=== PATIENT | female | born 1985 | race Caucasian/White ===

== ENCOUNTER 2016-04-16 07:09 | Inpatient (IN) | payer OTHER ==
[2016-04-16] VITALS (22 sets, daily range): BP systolic 109–134; BP diastolic 59–77
[~2016-04-16] VITALS: Ht 162.6 cm; Wt 85.7 kg
[~2016-04-16 07:09] MED LIST: FLEXERIL10 MG PO; MOTRIN600 MG PO
[2016-04-16] MEDS ORDERED: ZOLOFT50 MG PO (07:38)
[2016-04-16] MEDS ORDERED: PRENATAL TABLE1 EAC3 PO (07:39)
[2016-04-16 09:45] LABS: HEMATOCRIT 36.8 % (36.0-46.0); MCH 31.6 PG (29.0-34.0); MCHC 33.7 G/DL (30.0-36.0); MCV 93.6 FL (83-99); MEAN PLAT.VOLUME 9.8 uM^3 (9.5-12.4); PLATELET COUNT 437 K/uL (156-360); RBC DIS.WIDTH-CV 14.2 % (11.8-14.6); RBC DIS.WIDTH-SD 48.8 % (39-53); RED BLOOD COUNT 3.93 M/uL (3.80-5.20); WHITE BLOOD COUNT 13.7 K/uL (4.1-10.2)
[2016-04-16 09:50] LABS: EOSINOPHIL (%) 1.4 % (0-5); EOSINOPHIL COUNT 0.2 K/uL (0-0.3); IMMATURE GRANULOCYTE (%) 0.7 % (0.0-0.7); IMMATURE GRANULOCYTE COUNT 0.1 K/uL; MONOCYTE (%) 4.9 % (3-12); MONOCYTE COUNT 0.7 K/uL (0-0.8); NEUTROPHIL (%) 78.5 % (45-76); NEUTROPHIL COUNT 10.7 K/uL (1.8-6.4)
[2016-04-16 18:34] LABS: AMPHETAMINES QUANT VALUE 0 NG/ML; BARBITUATES QUANT VALUE 0 NG/ML; BENZODIAZEPINES QUANT VALUE 0 NG/ML; BENZODIAZEPINES, URINE SCREEN Negative (200 ng/mL); MARIJUANA QUANT VALUE 0 NG/ML; OPIATES QUANTITATIVE VALUE 0 NG/ML; PHENCYCLIDINE QUANT VALUE 0 NG/ML
[2016-04-17] VITALS (15 sets, daily range): BP systolic 95–142; BP diastolic 52–66
[2016-04-18 06:18] LABS: EOSINOPHIL (%) 2.6 % (0-5); EOSINOPHIL COUNT 0.5 K/uL (0-0.3); HEMATOCRIT 35.9 % (36.0-46.0); IMMATURE GRANULOCYTE (%) 0.4 % (0.0-0.7); IMMATURE GRANULOCYTE COUNT 0.1 K/uL; LYMPHOCYTE COUNT 2.4 K/uL (1.0-2.8); MCH 30.7 PG (29.0-34.0); MCHC 32.9 G/DL (30.0-36.0); MCV 93.5 FL (83-99); MEAN PLAT.VOLUME 9.5 uM^3 (9.5-12.4); MONOCYTE (%) 7.3 % (3-12); MONOCYTE COUNT 1.2 K/uL (0-0.8); NEUTROPHIL (%) 75.2 % (45-76); NEUTROPHIL COUNT 12.8 K/uL (1.8-6.4); PLATELET COUNT 381 K/uL (156-360); RBC DIS.WIDTH-CV 14.6 % (11.8-14.6); RBC DIS.WIDTH-SD 50.4 % (39-53); RED BLOOD COUNT 3.84 M/uL (3.80-5.20); WHITE BLOOD COUNT 17.1 K/uL (4.1-10.2)
[2016-04-18 07:39] VITALS: BP 115/71
[2016-04-18 14:49] VITALS: BP 126/67
[2016-04-18 23:45] VITALS: BP 122/75
[2016-04-19 07:53] VITALS: BP 117/65
== END 2016-04-19 12:22 | disposition home or self-care (01) | DRG 775 ==
LOC: LDRP-OP 07:09 → 2WEST 07:10 → LDRP-OP 23:30 → 2WEST 04-17 07:57 → LDRP-OP 05-17 11:14
PROVIDERS: Advanced Practice Midwife
DX: O70.0 First degree perineal laceration during delivery (principal); O99.214 Obesity complicating childbirth; E66.9 Obesity, unspecified; O99.344 Other mental disorders complicating childbirth; F41.9 Anxiety disorder, unspecified; Z68.25 Body mass index [BMI] 25.0-25.9, adult; Z3A.39 39 weeks gestation of pregnancy; Z37.0 Single live birth
CPT/HCPCS: 85025; C1726; C1755; G0378; J0595; J2405; J3010; J7120